=== PATIENT | female | born 1990 | race Caucasian/White ===

== ENCOUNTER → 2016-10-16 | Outpatient (CLI) | payer OTHER ==
[2015-02-26 23:43] VITALS: BP 126/62
[~2016-10-16] MED LIST: ANASPAZ0.125 M1 PO; CARAFATE S1 GM/10 ML PO; ESSENTIAL DAIL1 EACH PO; LEVSIN-SL0.125 MG SL; OMEPRAZOLE D/R20 MG PO
== END ==
LOC: LAB 12:29
DX: K14.3 Hypertrophy of tongue papillae (principal)

== ENCOUNTER 2016-11-05 17:14 | Emergency (ER) | payer OTHER ==
[~2016-11-05 17:14] MED LIST changes: -ANASPAZ0.125 M1 PO; -CARAFATE S1 GM/10 ML PO; -LEVSIN-SL0.125 MG SL; -OMEPRAZOLE D/R20 MG PO
[2016-11-05] MEDS ORDERED: ANASPAZ0.125 M1 PO (18:38)
[2016-11-05] MEDS ORDERED: OMEPRAZOLE D/R20 MG PO (18:39)
[2016-11-05] MEDS ORDERED: LEVSIN-SL0.125 MG SL (18:40)
[2016-11-05] MEDS ORDERED: CARAFATE S1 GM/10 ML PO (21:44)
[2016-11-05 22:10] VITALS: BP 151/65
== END 2016-11-05 17:21 | disposition home or self-care (01) ==
LOC: ED 17:14
DX: Z02.89 Encounter for other administrative examinations (principal)

== ENCOUNTER → 2016-11-05 | Outpatient (CLI) | payer OTHER ==
[~2016-11-05] VITALS: Ht 165.1 cm; Wt 108.6 kg
--- NOTE | 2016-11-05 18:24 | NUR ---
LABS DRAWN WITH IV START
--- NOTE | 2016-11-05 18:40 | NUR ---
IVF PATENT, TAKES ICE CHIPS WITH C/O ABDOMINAL PAIN WITH PO INTAKE
[2016-11-05 19:06] VITALS: BP 130/57
--- NOTE | 2016-11-05 19:34 | NUR ---
REPORT TO KYLE NASH
--- NOTE | 2016-11-05 19:36 | NUR ---
REPORT RECEIVED FROM DEWAYNE Banks RN.
[2016-11-05 22:10] VITALS: BP 151/65
--- NOTE | 2016-11-05 22:10 | NUR ---
PATIENT PROVIDED DISCHARGE EDUCATION AT THIS TIME. PATIENT INDICATES UNDERSTANDING AND HAS NO QUESTIONS. PATIENT PROVIDED DISCHARGE PRESCRIPTION. PATIENT INDICATES SHE WILL ATTEND ALL OF HER FOLLOW-UP APPOINTMENTS. PATIENT IS DISCHARGED HOME.
== END ==
LOC: LAB 17:21 → AMSURD 17:21
DX: E86.0 Dehydration (principal); Z98.84 Bariatric surgery status
CPT/HCPCS: J7030

== ENCOUNTER → 2019-08-16 | Outpatient (CLI) | payer OTHER ==
[2018-05-22 17:06] VITALS: BP 114/75
[~2019-08-16] MED LIST changes: +ANASPAZ0.125 M1 PO; +CARAFATE S1 GM/10 ML PO; +CYANOCOBAL1000 MCG/1 IM; +ERGOCALCIFER50000 IU PO; +ESCITALOPRAM10 MG PO; +LEVSIN-SL0.125 MG SL; +OMEPRAZOLE D/R20 MG PO; +RIZATRIPTAN BEN10 MG PO; +TIZANIDINE HYDRO2 MG PO; +TRI-LO-ESTARYL1 EACH PO
== END ==
LOC: LAB 15:55
DX: J02.9 Acute pharyngitis, unspecified (principal)

== ENCOUNTER → 2020-06-05 | Outpatient (CLI) | payer BC ==
[2018-05-22 17:06] VITALS: BP 114/75
== END ==
LOC: RAD 13:11
DX: N63.20 Unspecified lump in the left breast, unspecified quadrant (principal)